=== PATIENT | female | born 1960 | race Caucasian/White ===

== ENCOUNTER 2018-11-08 10:30 | Outpatient (CLI) | payer OTHER | END 2018-11-08 15:00 | disposition home or self-care (01) | LOC: LAB 10:30 | DX: J11.1 Influenza due to unidentified influenza virus with other respiratory manifestations (principal); R50.9 Fever, unspecified ==

== ENCOUNTER 2023-10-29 16:29 | Emergency (ER) | payer OTHER ==
[~2023-10-29] VITALS: Ht 165.1 cm; Wt 68.0 kg
[2023-10-29] MEDS ORDERED: LEVOXYL88 MCG PO (16:51)
[2023-10-29 19:58] LABS: HEMATOCRIT 37.4 % (36.0-45.00); HEMOGLOBIN 12.9 g/dL (12.0-15.00); MEAN CELL VOLUME 85.8 fL (80.00-100.00); MEAN CORPUSCULAR HEMOGLOBIN 29.7 pg (27.00-32.0); MEAN CORPUSCULAR HGB CONC 34.6 g/dl (32.0-36.0); PLATELET COUNT 217 K/uL (150-450); RED BLOOD COUNT 4.36 M/uL (4.00-6.00); RED CELL DISTRIBUTION WIDTH 14.1 % (11.5-14.5)
[2023-10-29 20:29] LABS: CALCIUM 9.6 mg/dL (8.5-10.1); CREATININE SERUM 0.76 mg/dL (0.55-1.02); GFR 76.86; POTASSIUM 3.78 mEq/L (3.5-5.1)
[2023-10-29] MEDS ORDERED: VISTARIL25 MG PO (21:38)
== END 2023-10-29 23:26 | disposition home or self-care (01) ==
LOC: ER 16:30
PROVIDERS: Nurse Practitioner Family
DX: F41.9 Anxiety disorder, unspecified (principal); R07.89 Other chest pain; E03.9 Hypothyroidism, unspecified; Z85.3 Personal history of malignant neoplasm of breast